=== PATIENT | male | born 1975 | race Caucasian/White ===

== ENCOUNTER 2016-06-25 10:20 | Outpatient (CLI) | payer OTHER ==
--- NOTE | 2016-06-25 12:13 | DIAGNOSTIC IMAGING REPORT ---
PROCEDURE: XR LUMBAR SPINE 5 VIEWS INDICATION: RADICULOPATHY TECHNIQUE: Five views. COMPARISON: None. FINDINGS: Osseous structures and disc spaces are normal. No evidence of an acute process or fracture. No evidence of spondylolysis or spondylolisthesis. IMPRESSION: 1. Negative lumbar spine.
== END 2016-06-25 23:00 ==
LOC: XR SRH 10:20
DX: M54.10 Radiculopathy, site unspecified (principal)

== ENCOUNTER → 2016-07-30 | Outpatient (CLI) | payer OTHER ==
--- NOTE | 2016-07-30 15:17 | DIAGNOSTIC IMAGING REPORT ---
PROCEDURE: MR LUMBAR SPINE W/O CONTRAST INDICATION: LUMBAR RADICULOPATHY TECHNIQUE: Noncontrast T1, T2, and STIR sagittal images. T1 and T2 axial images. COMPARISON: Lumbar spine x-ray 06/25/2016. FINDINGS: Normal alignment without fracture. L1 bony hemangioma. Normal conus. Normal paraspinal soft tissues. L1-2: Normal appearance. L2-3: Normal appearance. L3-4: Normal appearance. L4-5: Small left foraminal disc bulge and mild facet arthropathy with mild left foraminal stenosis. No spinal stenosis. L5-S1: Normal appearance. IMPRESSION: 1. Mild left L4-5 foraminal stenosis.
== END ==
LOC: MRI SRH 12:56
DX: M47.816 Spondylosis without myelopathy or radiculopathy, lumbar region (principal)